=== PATIENT | male | born 1960 | race Caucasian/White ===

== ENCOUNTER → 2018-05-31 | Outpatient (CLI) | payer OTHER | LOC: PT 08:40 → EDSTATUS 14:00 → PT 14:00 | DX: Z01.818 Encounter for other preprocedural examination (principal) ==

== ENCOUNTER 2018-06-21 13:00 | Outpatient (RCR) | payer OTHER ==
[2018-07-18] MEDS ORDERED: LISINOPRIL10 MG PO (10:55)
== END 2018-06-21 13:30 | disposition home or self-care (01) ==
LOC: PT 13:00
DX: Z47.1 Aftercare following joint replacement surgery (principal); Z96.642 Presence of left artificial hip joint

== ENCOUNTER 2018-06-24 08:42 | Emergency (ER) | payer OTHER ==
[~2018-06-24] VITALS: Wt 138.9 kg
[2018-06-24 09:21] LABS: HEMATOCRIT 38.7 % (42.0-52.0); HEMOGLOBIN 12.9 g/dL (13.5-18.0); MEAN CELL VOLUME 94 fl (78-100); MEAN CORPUSCULAR HEMOGLOBIN 31 pg (27-31); MEAN CORPUSCULAR HGB CONC 33 g/dL (33-37); MEAN PLATELET VOLUME 10.3 fl (7.4-10.4); PLATELET COUNT 224 K/mm3 (130-400); RED BLOOD COUNT 4.13 M/mm3 (4.20-5.60)
[2018-06-24 09:23] LABS: WHITE BLOOD COUNT 20.5 K/mm3 (4.8-10.8)
[2018-06-24 09:30] LABS: BAND 4 % (0-10); LYMPHOCYTE 3 % (20-51); MONOCYTE 11 % (3-10); NEUTROPHILS 82 % (42-75)
[2018-06-24] MEDS ORDERED: OXYCODONE PO (09:54)
[2018-06-24] MEDS ORDERED: CEFADROXIL500 MG PO (09:54)
[2018-06-24] MEDS ORDERED: DICLOFENAC SODI PO (09:54)
[2018-06-24] MEDS ORDERED: ECOTRIN325 M2 PO (09:55)
[2018-06-24 10:00] LABS: ALBUMIN 3.8 g/dL (3.5-5.0); CALCIUM 8.8 mg/dL (8.4-10.2); POTASSIUM 3.7 mmol/L (3.6-5.0); TOTAL PROTEIN 7.1 g/dL (6.3-8.2)
[2018-06-24 11:02] LABS: URINE APPEARANCE CLEAR; URINE COLOR YELLOW; URINE PROTEIN(semi-quant) NEGATIVE (NEGATIVE)
[2018-06-24 11:03] LABS: URINE BILIRUBIN NEGATIVE (NEGATIVE); URINE BLOOD NEGATIVE (NEGATIVE); URINE GLUCOSE NEGATIVE (NEGATIVE); URINE KETONE NEGATIVE (NEGATIVE); URINE LEUKOCYTE ESTERASE NEGATIVE (NEGATIVE); URINE NITRATE NEGATIVE (NEGATIVE); URINE UROBILINOGEN NORMAL (NORMAL)
[2018-06-24 12:05] VITALS: BP 134/71
== END 2018-06-24 12:25 | disposition short-term general hospital (02) ==
LOC: ED 08:42
PROVIDERS: Internal Medicine Cardiovascular Disease
DX: T81.4XXA Infection following a procedure, initial encounter (principal); L02.416 Cutaneous abscess of left lower limb; I10 Essential (primary) hypertension; Z79.82 Long term (current) use of aspirin; Z96.642 Presence of left artificial hip joint; Z79.899 Other long term (current) drug therapy
CPT/HCPCS: J3010; J7030

== ENCOUNTER → 2018-07-01 | Outpatient (CLI) | payer OTHER ==
[~2018-07-01] MED LIST: CEFADROXIL500 MG PO; DICLOFENAC SODI PO; ECOTRIN325 M2 PO; OXYCODONE PO
[2018-07-01 10:03] VITALS: BP 155/91
[2018-07-01 10:47] LABS: HEMATOCRIT 34.3 % (42.0-52.0); HEMOGLOBIN 10.8 g/dL (13.5-18.0); MEAN PLATELET VOLUME 10.3 fl (7.4-10.4); RED BLOOD COUNT 3.6 M/mm3 (4.20-5.60); RED CELL DISTRIBUTION WIDTH 13.4 % (11.5-14.5); WHITE BLOOD COUNT 12.4 K/mm3 (4.8-10.8)
[2018-07-01 11:13] LABS: ALBUMIN 3.3 g/dL (3.5-5.0); BUN/CREATININE RATIO 21.6 (6.0-26.0); CALCIUM 8.7 mg/dL (8.4-10.2); POTASSIUM 3.5 mmol/L (3.6-5.0); TOTAL BILIRUBIN 0.4 mg/dL (0.2-1.3); TOTAL PROTEIN 6.5 g/dL (6.3-8.2)
== END ==
LOC: LAB 10:13
PROVIDERS: Internal Medicine Infectious Disease
DX: D72.829 Elevated white blood cell count, unspecified (principal); L02.416 Cutaneous abscess of left lower limb; B99.9 Unspecified infectious disease

== ENCOUNTER → 2018-07-08 | Outpatient (CLI) | payer OTHER ==
[2018-07-08 09:40] VITALS: BP 152/94
[2018-07-08 10:25] LABS: HEMATOCRIT 37.4 % (42.0-52.0); MEAN PLATELET VOLUME 10.7 fl (7.4-10.4); RED BLOOD COUNT 4.03 M/mm3 (4.20-5.60); RED CELL DISTRIBUTION WIDTH 12.7 % (11.5-14.5); WHITE BLOOD COUNT 10.7 K/mm3 (4.8-10.8)
[2018-07-08 10:33] LABS: ALBUMIN 3.9 g/dL (3.5-5.0); CALCIUM 9.3 mg/dL (8.4-10.2); POTASSIUM 3.8 mmol/L (3.6-5.0); TOTAL BILIRUBIN 0.4 mg/dL (0.2-1.3); TOTAL PROTEIN 7.8 g/dL (6.3-8.2)
== END ==
LOC: LAB 10:04
PROVIDERS: Family Medicine
DX: L02.416 Cutaneous abscess of left lower limb (principal)

== ENCOUNTER → 2018-07-15 | Outpatient (CLI) | payer OTHER ==
[2018-07-14 10:35] VITALS: BP 162/99
[2018-07-15 12:12] LABS: EOS # 0.3 (0.04-0.40); EOS % 3.7 % (0.0-4.0); HEMATOCRIT 37.3 % (42.0-52.0); HEMOGLOBIN 12.1 g/dL (13.5-18.0); LYMPH# 1.8 (1.50-4.00); MEAN CELL VOLUME 93 fl (78-100); MEAN CORPUSCULAR HEMOGLOBIN 30 pg (27-31); MEAN CORPUSCULAR HGB CONC 32 g/dL (33-37); MEAN PLATELET VOLUME 11.3 fl (7.4-10.4); MONO # 0.7 (0.20-0.80); NEU # 5.7 (1.40-6.50); PLATELET COUNT 294 K/mm3 (130-400); RED BLOOD COUNT 4.01 M/mm3 (4.20-5.60); RED CELL DISTRIBUTION WIDTH 12.8 % (11.5-14.5); WHITE BLOOD COUNT 8.6 K/mm3 (4.8-10.8)
[2018-07-15 17:31] LABS: ALBUMIN 3.9 g/dL (3.5-5.0); CALCIUM 9.4 mg/dL (8.4-10.2); POTASSIUM 4.3 mmol/L (3.6-5.0); TOTAL BILIRUBIN 0.3 mg/dL (0.2-1.3)
[2018-07-15 18:38] LABS: ERYTHROCYTE SEDIMENTATION RATE 61 mm/hr (0-20)
== END ==
LOC: LAB 10:34
PROVIDERS: Family Medicine
DX: A41.9 Sepsis, unspecified organism (principal)

== ENCOUNTER → 2018-07-22 | Outpatient (CLI) | payer OTHER ==
[2018-07-21 11:05] VITALS: BP 138/91
[~2018-07-22] MED LIST changes: +LISINOPRIL10 MG PO
[2018-07-22 10:48] LABS: EOS # 0.4 (0.04-0.40); HEMATOCRIT 38.3 % (42.0-52.0); HEMOGLOBIN 12.3 g/dL (13.5-18.0); LYMPH# 1.6 (1.50-4.00); MEAN CELL VOLUME 93 fl (78-100); MEAN CORPUSCULAR HEMOGLOBIN 30 pg (27-31); MEAN CORPUSCULAR HGB CONC 32 g/dL (33-37); MONO # 0.6 (0.20-0.80); NEU # 5.2 (1.40-6.50); PLATELET COUNT 266 K/mm3 (130-400); RED BLOOD COUNT 4.11 M/mm3 (4.20-5.60); RED CELL DISTRIBUTION WIDTH 13.1 % (11.5-14.5); WHITE BLOOD COUNT 7.8 K/mm3 (4.8-10.8)
[2018-07-22 10:55] LABS: ALBUMIN 4.1 g/dL (3.5-5.0); CALCIUM 9.3 mg/dL (8.4-10.2); POTASSIUM 4.2 mmol/L (3.6-5.0); TOTAL BILIRUBIN 0.3 mg/dL (0.2-1.3); TOTAL PROTEIN 7.8 g/dL (6.3-8.2)
[2018-07-22 11:12] LABS: EOS % 5.2 % (0.0-4.0)
[2018-07-22 12:20] LABS: ERYTHROCYTE SEDIMENTATION RATE 58 mm/hr (0-20)
== END ==
LOC: LAB 10:08 → EDSTATUS 10:14 → LAB 10:16
PROVIDERS: Family Medicine
DX: A41.9 Sepsis, unspecified organism (principal)

== ENCOUNTER → 2018-08-04 | Outpatient (CLI) | payer OTHER ==
[2018-08-04 10:15] VITALS: BP 137/88
[2018-08-04 10:57] LABS: EOS # 0.3 (0.04-0.40); EOS % 3.2 % (0.0-4.0); HEMOGLOBIN 12.6 g/dL (13.5-18.0); LYMPH# 1.7 (1.50-4.00); MEAN CELL VOLUME 93 fl (78-100); MEAN CORPUSCULAR HEMOGLOBIN 30 pg (27-31); MEAN CORPUSCULAR HGB CONC 32 g/dL (33-37); MEAN PLATELET VOLUME 10.9 fl (7.4-10.4); MONO # 0.6 (0.20-0.80); NEU # 5.4 (1.40-6.50); PLATELET COUNT 267 K/mm3 (130-400); WHITE BLOOD COUNT 7.9 K/mm3 (4.8-10.8)
[2018-08-04 11:11] LABS: ALBUMIN 4.1 g/dL (3.5-5.0); POTASSIUM 4.4 mmol/L (3.6-5.0); TOTAL BILIRUBIN 0.4 mg/dL (0.2-1.3); TOTAL PROTEIN 7.6 g/dL (6.3-8.2)
[2018-08-04 11:59] LABS: ERYTHROCYTE SEDIMENTATION RATE 27 mm/hr (0-20)
== END ==
LOC: LAB 10:39
PROVIDERS: Family Medicine
DX: A41.9 Sepsis, unspecified organism (principal)

== ENCOUNTER 2018-08-09 09:53 | Outpatient (RCR) | payer OTHER ==
[2018-06-30 16:29] VITALS: BP 170/79
[2018-06-30 16:38] VITALS: BP 134/97
[2018-07-01 10:03] VITALS: BP 155/91
[2018-07-01 10:31] VITALS: BP 149/89
[2018-07-02 13:38] VITALS: BP 144/83
[2018-07-03 12:33] VITALS: BP 150/89
[2018-07-04 11:45] VITALS: BP 161/97
[2018-07-05 10:56] VITALS: BP 114/75
[2018-07-06 09:50] VITALS: BP 128/90
[2018-07-07 10:10] VITALS: BP 140/86
[2018-07-08 09:40] VITALS: BP 152/94
[2018-07-09 08:30] VITALS: BP 142/98
[2018-07-10 19:54] VITALS: BP 168/93
[2018-07-11 17:36] VITALS: BP 152/93
[2018-07-12 11:33] VITALS: BP 157/95
[2018-07-13 11:00] VITALS: BP 154/99
[2018-07-14 10:35] VITALS: BP 162/99
[2018-07-15 10:07] VITALS: BP 147/103
[2018-07-16 11:39] VITALS: BP 157/108
[2018-07-17 10:13] VITALS: BP 162/91
[2018-07-18 10:55] VITALS: BP 138/81
[2018-07-20 11:21] VITALS: BP 147/85
[2018-07-21 11:05] VITALS: BP 138/91
[2018-07-22 10:15] VITALS: BP 163/99
[2018-07-23 10:26] VITALS: BP 155/93
[2018-07-24 09:40] VITALS: BP 146/86
[2018-07-25 10:50] VITALS: BP 172/97
[2018-07-26 10:35] VITALS: BP 167/106
[2018-07-27 10:15] VITALS: BP 154/98
[2018-07-28 10:19] VITALS: BP 165/97
[2018-07-29 11:13] VITALS: BP 158/93
[2018-07-30 09:47] VITALS: BP 145/98
[2018-07-31 10:01] VITALS: BP 163/102
[2018-08-01 10:03] VITALS: BP 135/93
[2018-08-02 10:05] VITALS: BP 163/93
[2018-08-03 12:39] VITALS: BP 143/87
[2018-08-04 10:15] VITALS: BP 137/88
[2018-08-05 10:08] VITALS: BP 150/97
[2018-08-06 10:43] VITALS: BP 148/94
[2018-08-07 10:29] VITALS: BP 146/95
[2018-08-08 10:49] VITALS: BP 160/88
[~2018-08-09] VITALS: Ht 182.9 cm; Wt 138.9 kg
[2018-08-09 10:00] VITALS: BP 160/102
[2018-08-10 09:35] VITALS: BP 151/84
== END 2018-08-10 11:00 | disposition home or self-care (01) ==
LOC: AMSURD 09:53
DX: T84.52XA Infection and inflammatory reaction due to internal left hip prosthesis, initial encounter (principal); A41.9 Sepsis, unspecified organism; Z96.642 Presence of left artificial hip joint
CPT/HCPCS: J0878; J1644

== ENCOUNTER → 2018-08-10 | Outpatient (CLI) | payer OTHER ==
[2018-08-09 10:00] VITALS: BP 160/102
[2018-08-10 09:53] LABS: EOS # 0.3 (0.04-0.40); EOS % 2.7 % (0.0-4.0); HEMATOCRIT 41.7 % (42.0-52.0); HEMOGLOBIN 13.4 g/dL (13.5-18.0); MEAN CELL VOLUME 92 fl (78-100); MEAN CORPUSCULAR HEMOGLOBIN 30 pg (27-31); MEAN CORPUSCULAR HGB CONC 32 g/dL (33-37); MONO # 0.5 (0.20-0.80); NEU # 6.4 (1.40-6.50); PLATELET COUNT 281 K/mm3 (130-400); RED BLOOD COUNT 4.55 M/mm3 (4.20-5.60); RED CELL DISTRIBUTION WIDTH 13.2 % (11.5-14.5); WHITE BLOOD COUNT 9.2 K/mm3 (4.8-10.8)
[2018-08-10 10:06] LABS: ALBUMIN 4.3 g/dL (3.5-5.0); CALCIUM 9.2 mg/dL (8.4-10.2); POTASSIUM 4.1 mmol/L (3.6-5.0); TOTAL BILIRUBIN 0.5 mg/dL (0.2-1.3); TOTAL PROTEIN 8.1 g/dL (6.3-8.2)
[2018-08-10 11:00] LABS: ERYTHROCYTE SEDIMENTATION RATE 30 mm/hr (0-20)
== END ==
LOC: LAB 09:16
PROVIDERS: Family Medicine
DX: T84.52XA Infection and inflammatory reaction due to internal left hip prosthesis, initial encounter (principal); Z95.9 Presence of cardiac and vascular implant and graft, unspecified

== ENCOUNTER 2018-08-12 11:00 | Outpatient (RCR) | payer OTHER ==
[2018-07-05 10:56] VITALS: BP 114/75
== END 2018-08-12 11:30 | disposition home or self-care (01) ==
LOC: PT 11:00
DX: Z47.1 Aftercare following joint replacement surgery (principal); Z96.642 Presence of left artificial hip joint

== ENCOUNTER → 2018-08-17 | Outpatient (CLI) | payer OTHER ==
[2018-08-10 09:35] VITALS: BP 151/84
[2018-08-17 11:13] LABS: EOS # 0.2 (0.04-0.40); HEMATOCRIT 41.7 % (42.0-52.0); HEMOGLOBIN 13.6 g/dL (13.5-18.0); LYMPH# 2.2 (1.50-4.00); MEAN CELL VOLUME 91 fl (78-100); MEAN CORPUSCULAR HEMOGLOBIN 30 pg (27-31); MEAN CORPUSCULAR HGB CONC 33 g/dL (33-37); MEAN PLATELET VOLUME 11.2 fl (7.4-10.4); MONO # 0.7 (0.20-0.80); NEU # 6.3 (1.40-6.50); PLATELET COUNT 291 K/mm3 (130-400); RED CELL DISTRIBUTION WIDTH 13.2 % (11.5-14.5); WHITE BLOOD COUNT 9.5 K/mm3 (4.8-10.8)
[2018-08-17 11:26] LABS: ALBUMIN 4.4 g/dL (3.5-5.0); CALCIUM 9.2 mg/dL (8.4-10.2); POTASSIUM 4.2 mmol/L (3.6-5.0); TOTAL BILIRUBIN 0.5 mg/dL (0.2-1.3); TOTAL PROTEIN 8.2 g/dL (6.3-8.2)
[2018-08-17 12:32] LABS: ERYTHROCYTE SEDIMENTATION RATE 33 mm/hr (0-20)
== END ==
LOC: LAB 10:42
PROVIDERS: Internal Medicine Infectious Disease
DX: T84.52XA Infection and inflammatory reaction due to internal left hip prosthesis, initial encounter (principal)

== ENCOUNTER → 2018-10-12 | Outpatient (CLI) | payer OTHER ==
[2018-10-12 11:17] LABS: EOS # 0.3 (0.04-0.40); EOS % 3.6 % (0.0-4.0); HEMOGLOBIN 14.1 g/dL (13.5-18.0); MEAN CELL VOLUME 90 fl (78-100); MEAN CORPUSCULAR HEMOGLOBIN 29 pg (27-31); MEAN CORPUSCULAR HGB CONC 32 g/dL (33-37); MEAN PLATELET VOLUME 11.5 fl (7.4-10.4); MONO # 0.7 (0.20-0.80); NEU # 5.3 (1.40-6.50); PLATELET COUNT 242 K/mm3 (130-400); RED BLOOD COUNT 4.89 M/mm3 (4.20-5.60); RED CELL DISTRIBUTION WIDTH 13.9 % (11.5-14.5); WHITE BLOOD COUNT 8.3 K/mm3 (4.8-10.8)
[2018-10-12 11:23] LABS: ALBUMIN 4.1 g/dL (3.5-5.0); CALCIUM 9.3 mg/dL (8.4-10.2); TOTAL BILIRUBIN 0.3 mg/dL (0.2-1.3); TOTAL PROTEIN 7.7 g/dL (6.3-8.2)
[2018-10-12 13:25] LABS: ERYTHROCYTE SEDIMENTATION RATE 14 mm/hr (0-20)
== END ==
LOC: LAB 10:16
PROVIDERS: Internal Medicine Infectious Disease
DX: T84.52XA Infection and inflammatory reaction due to internal left hip prosthesis, initial encounter (principal); B99.9 Unspecified infectious disease

== ENCOUNTER → 2019-01-03 | Outpatient (CLI) | payer OTHER ==
[2019-01-05 13:59] LABS: ALBUMIN 4.4 g/dL (3.5-5.0); CALCIUM 9.4 mg/dL (8.4-10.2); EOS # 0.2 (0.04-0.40); EOS % 2.8 % (0.0-4.0); HEMATOCRIT 41.9 % (42.0-52.0); HEMOGLOBIN 13.7 g/dL (13.5-18.0); LYMPH# 1.9 (1.50-4.00); MEAN CELL VOLUME 90 fl (78-100); MEAN CORPUSCULAR HEMOGLOBIN 30 pg (27-31); MEAN CORPUSCULAR HGB CONC 33 g/dL (33-37); MEAN PLATELET VOLUME 12.6 fl (7.4-10.4); MONO # 0.7 (0.20-0.80); PLATELET COUNT 210 K/mm3 (130-400); POTASSIUM 4.2 mmol/L (3.6-5.0); RED BLOOD COUNT 4.65 M/mm3 (4.20-5.60); RED CELL DISTRIBUTION WIDTH 14.1 % (11.5-14.5); TOTAL BILIRUBIN 0.4 mg/dL (0.2-1.3); TOTAL PROTEIN 7.6 g/dL (6.3-8.2); WHITE BLOOD COUNT 7.8 K/mm3 (4.8-10.8)
[2019-01-05 14:00] LABS: ERYTHROCYTE SEDIMENTATION RATE 11 mm/hr (0-20)
== END ==
LOC: LAB 15:24
PROVIDERS: Internal Medicine Infectious Disease
DX: M00.9 Pyogenic arthritis, unspecified (principal); E66.01 Morbid (severe) obesity due to excess calories

== ENCOUNTER → 2019-06-27 | Outpatient (CLI) | payer OTHER ==
[2019-06-27 16:35] LABS: ALBUMIN 4.2 g/dL (3.5-5.0); POTASSIUM 3.9 mmol/L (3.5-5.1)
[2019-06-27 16:37] LABS: CALCIUM 9.5 mg/dL (8.3-10.5)
[2019-06-27 16:38] LABS: TOTAL PROTEIN 8.6 g/dL (6.4-8.3)
[2019-06-27 16:40] LABS: TOTAL BILIRUBIN 0.3 mg/dL (0.2-1.2)
[2019-06-27 16:49] LABS: EOS # 0.3 (0.04-0.40); EOS % 3.2 % (0.0-4.0); HEMOGLOBIN 14.6 g/dL (13.5-18.0); MEAN CELL VOLUME 92 fl (78-100); MEAN CORPUSCULAR HEMOGLOBIN 30 pg (27-31); MEAN CORPUSCULAR HGB CONC 32 g/dL (33-37); MONO # 0.7 (0.20-0.80); NEU # 5.6 (1.40-6.50); PLATELET COUNT 223 K/mm3 (130-400); RED BLOOD COUNT 4.92 M/mm3 (4.20-5.60); RED CELL DISTRIBUTION WIDTH 13.3 % (11.5-14.5); WHITE BLOOD COUNT 8.5 K/mm3 (4.8-10.8)
[2019-06-27 18:00] LABS: ERYTHROCYTE SEDIMENTATION RATE 16 mm/hr (0-20)
== END ==
LOC: LAB 15:35
PROVIDERS: Family Medicine
DX: M00.9 Pyogenic arthritis, unspecified (principal)